=== PATIENT | male | born 1985 | race Caucasian/White ===

== ENCOUNTER 2021-10-29 09:01 | Emergency (ER) | payer OTHER ==
[~2021-10-29] VITALS: Ht 180.3 cm; Wt 99.9 kg
[2021-10-29 11:32] VITALS: BP 139/89
== END 2021-10-29 11:39 | disposition home or self-care (01) ==
LOC: M ED 09:01
DX: R10.813 Right lower quadrant abdominal tenderness (principal); R79.9 Abnormal finding of blood chemistry, unspecified; K76.0 Fatty (change of) liver, not elsewhere classified; F17.200 Nicotine dependence, unspecified, uncomplicated
CPT/HCPCS: 74177; 80047; 80076; 81001; 83690; 85025; 96374; 96375; 99284; C9113; J1885; J2405; Q9967